=== PATIENT | male | born 1975 | race Caucasian/White ===

== ENCOUNTER → 2017-11-01 08:35 | Outpatient (CLI) | payer OTHER, SELFPAY ==
[2017-11-01 09:42] LABS: ALB/GLOB Ratio 0.9 RATIO (0.9-2.4); AST(SGOT) 21 U/L (15-37); Alanine Aminotransfer ALT/SGPT 60 U/L (16-61); Alkaline Phosphatase 86 U/L (45-117); Anion Gap 5 (5-15); BUN 15 mg/dL (7-18); BUN/Creat Ratio 14.7 RATIO (10-20); Calcium,Total 8.8 mg/dL (8.5-10.1); Chloride 106 mmol/L (98-107); Cholesterol 189 mg/dL (200); Creatinine, Serum 1.02 mg/dL (0.70-1.30); EST Glomerular Filtration Rate 85 mL/min (>60); Est Glom Filt Rate - Afr Amer 103 mL/min (>60); Globulin 4.3 g/dL (2.2-4.2); Glucose 134 mg/dL (74-106); High Density Lipoprotein 39 mg/dL; Protein, Total 8.3 g/dL (6.4-8.2); Sodium Level 141 mmol/L (136-145); Triglycerides 66 mg/dL; Very Low Density Lipoprotein 13 mg/dL (5-40)
== END ==
PROVIDERS: Family Provider Preventive Medicine Occupational Medicine; PCP Preventive Medicine Occupational Medicine; Visit Provider Preventive Medicine Occupational Medicine
DX: Z00.00 Encounter for general adult medical examination without abnormal findings (principal)
CPT/HCPCS: 36415; 80053; 80061

== ENCOUNTER → 2018-08-25 14:47 | Outpatient (CLI) | payer OTHER, SELFPAY ==
--- NOTE | 2018-08-25 | IMM_PTH ---
PATIENT: BALDEMAR RASHID LOC: [facility] U#:[id number] AGE/SX: 50/M ROOM: RE08/25/[address]: Dr. Jewell Guerrero MD : 1975 BED: DIS: SPEC #: [id number] RECD: 08/26/18 13:07 STATUS: JENARO ANNA #: [id number] VIVEK: 08/25/18 00:[address]: Jewell Guerrero DEPT: IMMUNOHISTOCHEMISTRY RECD BY: Rosemarie Vernon ENTERED: 08/26/18 13:08 SP TYPE: IMMUNO OTHR DR: Dr. Alber Clemons DO Tissues: Skin of forehead Procedures: SMA (add) CD34 (add) DESMIN (add) DENVER (add) P53 (add) Pankeratin (add) Vimentin (initial) S-100 (add) PHYSICIAN & INSTITUTION [place] [id number] SPECIMEN INFORMATION: Tissue Source: Skin lesion left forehead Clinical Info: Skin lesion left forehead Specimen Number: [id number] CPT code: 66224, 80449 x7 METHODOLOGY: Deparaffinized sections of prefer/formalin-fixed tissue or PAP/DQ stained slides are incubated with monoclonal/polyclonal antibodies/oligonucleotide probes. Localization is made via biotin free immunoperoxidase method. Appropriate controls are performed and reacted as expected. Results on target cell population are indicated in the following table: RESULTS: ANTIBODY / CLONE RESULT S-100 (4C4.9) positive, dim Vimentin (V9) positive Actin (1A4) negative Desmin (CE-R-11) negative AE1-3 (AE1/AE3/PCK26) negative CD34 (QBEnd-10) positive DENVER (E29) negative P53 (DO-7) negative These tests were developed and their performance characteristics determined by [facility]. They may not have been cleared or approved by the U.S. Food and Drug Administration. The FDA has determined that such clearance or approval is not necessary. INTERPRETATION: Skin lesion left forehead, excision: Consistent with neurofibroma. AM:nila 08/27/18
--- NOTE | 2018-08-25 14:20 | LES_PTH ---
PATIENT: BALDEMAR RASHID LOC: [facility] U#:[id number] AGE/SX: 50/M ROOM: RE08/25/[address]: Dr. Jewell Guerrero MD : 1975 BED: DIS: SPEC #: [id number] RECD: 08/25/18 14:41 STATUS: JENARO ANNA #: [id number] VIVEK: 08/25/18 14:[address]: Jewell Guerrero DEPT: SURGICAL PATHOLOGY RECD BY: Rosemarie Vernon ENTERED: 08/25/18 15:44 SP TYPE: Lesion OTHR DR: Dr. Alber Clemons, DO Tissues: Skin of forehead Procedures: Surgery Specimen Level IV HEADER OPERATION: Excision skin mass left forehead PRE-OP DIAGNOSIS: Skin lesion left forehead TISSUE SUBMITTED: Skin lesion left forehead MICROSCOPIC DIAGNOSIS Skin lesion of left forehead, biopsy: Consistent with neurofibroma. AM:nila 08/26/18 COMMENT Immunohistochemistry ([id number]) supports the above diagnosis. Case has been reviewed in consultation with Dr. Bonilla who concurs with the above diagnosis. IDC:SJ MICROSCOPIC DESCRIPTION Slides are reviewed. GROSS DESCRIPTION Received in fixative is one container labeled with the patient's name and designated skin lesion left forehead. The specimen consists of a cylindrical piece of solorzano soft tissue measuring 1 x 0.4 x 0.3 cm. The specimen is inked, bisected and submitted entirely in one cassette. / CARLOS:nila 08/25/18 TC:1 CPT: 17044
[2018-08-25 14:28] VITALS: BMI 36.6
== END ==
PROVIDERS: Family Provider Preventive Medicine Occupational Medicine; PCP Preventive Medicine Occupational Medicine; Referring Provider Surgery; Visit Provider Surgery
DX: L98.8 Other specified disorders of the skin and subcutaneous tissue (principal)
CPT/HCPCS: 88305; 88341; 88342

== ENCOUNTER 2019-11-08 11:46 | Emergency (ER) | payer BC, SELFPAY ==
[2018-08-25 14:28] VITALS: BMI 36.6
[2019-11-08 11:46] VITALS: BP 133/89; PULSE 78; RESP 18; O2SAT 97
[2019-11-08 11:47] VITALS: BP 144/89; PULSE 91; RESP 16; TEMP 36.8; O2SAT 99; BMI 35.2
--- NOTE | 2019-11-08 12:16 | ED.DCSUM_ITS ---
History of Present Illness Informant: Patient Onset: Yesterday Context: Gradual Onset Timing: Continuous Quality: Rash Location: everywhere Current Severity: Moderate Maximum Severity: Severe Worsened by: nothing Relieved by: nothing Associated Symptoms: denies Narrative: 44-year-old male presents with a rash. He first noticed it yesterday. It is constant. It is mildly pruritic and red. It is located on his arms chest and back. He has not had any location in the rash on his face. He has not had a fever. He is not lightheaded or dizzy. He does have some mild abdominal pain but he states that he has a slightly upset stomach because yesterday he finished his 10th day of Bactrim. He was placed on this by his primary care physician because he states that he had a few infected hair follicles on both legs and arms. He has not had any difficulty breathing or swallowing or any difficulty opening or closing his mouth. No vomiting or diarrhea. He has never taken Bactrim before this most recent course. Denies any other new medications, or new foods, no one else at home similar rash, denies any new soaps lotions detergents or skin care products. Prior similar symptoms: No Recent Illness/Hospitalization: No <Ortiz Dillon - Last Filed: 11/08/19 12:28> <Kym Montana - Last Filed: 11/08/19 14:59> Chief Complaint: General Illness Past Medical History Prior records reviewed: Yes Past Medical History: None Surgical History: no surgical history Lives: With Family Smoking Status: Current every day smoker Alcohol: Occasional Drugs: None <Ortiz Dillon - Last Filed: 11/08/19 12:28> <Kym Montana - Last Filed: 11/08/19 14:59> - Allergies and Home Meds Allergies/Adverse Reactions: Allergies No Known Allergies Allergy (Verified 11/08/19 11:50) Primary Care Physician: Alber Clemons DO [Primary Care Provider] - 2 Days for wound check Review of Systems All systems negative except as indicated General: Denies: Chills, Fever, Malaise, Subjective, Sweats, Weight loss Eyes: Denies: Visual changes - bilaterally, Blurred Vision - bilaterally, Diplopia ENT: Denies: Rhinorrhea, Sore throat Cardiovascular: Denies: Chest pain, Palpitations, Heart racing Respiratory: Denies: Dyspnea, Cough, Sputum Gastrointestinal: Denies: Abdominal pain, Nausea, Vomiting, Diarrhea, Constipati on, Melena Genitourinary: Denies: Dysuria, Hematuria, Frequency Musculoskeletal: Denies: Myalgias, Arthralgias, Back pain, Swelling, Extremity Pain Skin: Reports: Rash. Denies: Abscess, Abrasions, Wounds Neurological: Denies: Headache, Weakness, Parasthesia, Numbness Psych: Denies: Depression, Anxiety <Ortiz Dillon - Last Filed: 11/08/19 12:28> Physical Exam Vital Signs/Narrative: Vital Signs Temp Pulse Resp BP Pulse Ox 11/08/19 11:47 98.2 F 91 16 144/89 H 99 Inital Vital Signs reviewed: Yes General: Well nourished, Well developed, No Acute Distress Head: Normocephalic, Atraumatic Eyes: Perrl, EOMI. Negative for: Pale conjunctiva, Scleral icterus ENT: Moist mucous membranes, No rhinorrhea, - - Normal posterior oropharynx. Normal airway. Neck: Supple, Nontender Cardiovascular: Regular rate, Regular rhythm, No murmurs Respiratory: No distress, CTA bilaterally, Chest nontender Abdomen: Soft, Nontender, Nondistended, Normal bowel sounds, No masses Back: Nontender, Normal Inspection Extremities: Nontender, No edema Skin: Rash - Patient has a drug rash that is diffusely red no warmth no blisters no pustules no bullae no petechia no purpura. The rash is only located on both arms his chest and back. No lesions in his mucous membranes are within his mouth. No sloughing of skin is noted. His eyes appear normal. Neurological: Alert, Oriented x3 Psychological: Normal affect, Normal Mood <Ortiz Dillon - Last Filed: 11/08/19 12:28> Vital Signs/Narrative: Vital Signs Temp Pulse Resp BP Pulse Ox 11/08/19 14:27 16 11/08/19 11:47 98.2 F 91 16 144/89 H 99 11/08/19 11:46 78 18 133/89 H 97 <Kym Montana - Last Filed: 11/08/19 14:59> Diagnostic/Tx/Re-eval - Medical Decision Making Rash is consistent with a drug eruption that is likely from the Bactrim. He is already completed the course but was advised to place this on his allergy list. No signs or symptoms at this time of Zaragoza-Go syndrome, toxic epidermal necrolysis, or anaphylaxis. Will prescribe Pepcid and Benadryl. He will follow-up with his primary care physician. Return precautions given. He will be discharged. <Ortiz Dillon - Last Filed: 11/08/19 12:28> - Medical Decision Making I have personally performed a [id number] assessment of the patient and have reviewed the PA note. My crews findings include 44-year-old male presenting with rash. He recently completed a course of Bactrim. He has no signs of Zaragoza- Go syndrome. He also complains of right upper quadrant abdominal pain. CBC shows white count 3.3, platelet 128. AST 76, ALT 141, total bili 0.50. Lipase is normal. Gallbladder ultrasound shows fatty infiltration of the liver. He has finished Bactrim and is advised not to take this medication again. Advised of these findings and advised to follow-up with his primary care physician for recheck. Advised to return to the ED for worsening complaints. <Kym Montana - Last Filed: 11/08/19 14:59> ED Disposition <Ortiz Dillon - Last Filed: 11/08/19 12:28> <Kym Montana - Last Filed: 11/08/19 14:59> - Plan for ED Patient: Disposition: Home or Assisted Living Diagnosis: Drug eruption Instructions: DRUG REACTION, Other Prescriptions: DiphenhydrAMINE [Benadryl] 50 mg PO TID PRN PRN #30 cap PRN Reason: Rash/Topical Irritation Prescription Printed Famotidine [Pepcid] 20 mg PO BID #28 tab Prescription Printed Referrals: Alber Clemons DO [Primary Care Provider] - 2 Days for wound check
[2019-11-08] MEDS: Famotidine 20 MG Tablet 40 MG PO (12:36)
[2019-11-08] MEDS: DiphenhydrAMINE 25 MG Capsule PO (12:36)
[2019-11-08 13:11] LABS: Absolute Lymphocyte Count 0.64 X10^3/uL (0.83-4.51); Absolute Neutrophil Count 2.2 X10^3/uL (2.0-7.7); Basophil# 0.01 X10^3/uL; Basophil% 0.3 % (0-1); Eosinophil# 0.24 X10^3/uL; Eosinophils% 7.4 % (0-5); Hematocrit 43.5 % (40-54); Hemoglobin 14.5 g/dL (13.0-16.5); Lymphocyte # 0.64 X10^3/ul (4.0); Lymphocyte % 19.7 % (19-41); Mean Corp Hgb Conc 33.3 g/dL (32-36); Mean Corpuscular Hgb 29.8 pg (27.0-32.0); Mean Corpuscular Volume 89.3 fL (80-94); Mean Platelet Vol. 9.4 fl (6.2-12.0); Monocyte# 0.15 X10^3/uL; Monocyte% 4.6 % (0-10); NRBC Flagged by Analyzer 0 % (0-5); Neutrophil % 67.7 % (47-70); Platelet Count 128 K/mm3 (150-450); RBC Distribution Width CV 12.7 % (11.6-14.6); RBC Distribution Width SD 41.8 fl (35.1-43.9); Red Blood Count 4.87 M/mm3 (4.6-6.2); White Blood Count 3.3 K/mm3 (4.4-11.0)
[2019-11-08 13:26] LABS: ALB/GLOB Ratio 0.8 RATIO (0.9-2.4); AST(SGOT) 76 U/L (15-37); Alanine Aminotransfer ALT/SGPT 141 U/L (16-61); Albumin, Serum 3.5 g/dL (3.2-5.0); Alkaline Phosphatase 101 U/L (45-117); Anion Gap 3 (5-15); BUN 13 mg/dL (7-18); BUN/Creat Ratio 12.1 RATIO (10-20); Calcium,Total 8.4 mg/dL (8.5-10.1); Chloride 108 mmol/L (98-107); Creatinine, Serum 1.07 mg/dL (0.70-1.30); EST Glomerular Filtration Rate 80 mL/min (>60); Est Glom Filt Rate - Afr Amer 97 mL/min (>60); Estimated Creatinine Clearance 91.91 ml/min; Globulin 4.2 g/dL (2.2-4.2); Glucose 108 mg/dL (74-106); Lipase 46 U/L (73-393); Potassium 3.9 mmol/L (3.5-5.1); Protein, Total 7.7 g/dL (6.4-8.2); Sodium Level 138 mmol/L (136-145)
--- NOTE | 2019-11-08 13:31 | US_ITS ---
STUDY: ABDOMINAL ULTRASOUND - RIGHT UPPER QUADRANT REASON FOR VISIT: Male, 44 years old ruq pain TECHNIQUE: Ultrasound evaluation of the right upper quadrant was performed with real-time and static walker-scale imaging. TECHNICAL QUALITY: Adequate. COMPARISON: None. FINDINGS: Liver: The liver measures 18.7 cm. There is increased echogenicity consistent with fatty infiltration. The bile ducts are within normal limits. There is hepatic color flow. The direction of portal flow is hepatopetal. There is no demonstrated mass lesion. Gallbladder: Normal distended gallbladder. The gallbladder wall measures 2 mm. There is a negative sonographic Paris''s sign. There is no pericholecystic fluid. There are no gallstones. Common Bile Duct (C.B.D.): The common bile duct measures 4 mm. Pancreas: Normal size of the head, body and tail of the pancreas. There is normal echogenicity of the pancreas. There is no demonstrated pancreatic mass or cyst. Right Kidney: Normal size of the right kidney. The right kidney measures 11.1 cm. Normal renal cortex. The right cortex measures 1.2 cm. There is no demonstrated renal mass or cyst. There is no right hydronephrosis. US/Gallbladder IMPRESSION: Fatty infiltration of the liver. Electronically Signed: Luis Reece MD at 14:38 EST Tel , Service support ,
[2019-11-08] MEDS: 0.9% Normal Saline 1,000 ML 999 ML IV (14:26)
[2019-11-08 14:27] VITALS: RESP 16
[2019-11-08] MEDS: HYDROcodone Bitartrate/Apap 5/325 Tablet PO (14:42)
[2019-11-08 15:18] VITALS: BP 147/88; PULSE 87; RESP 16; O2SAT 98
== END 2019-11-08 15:19 | disposition home or self-care (01) ==
LOC: ED 12:51
PROVIDERS: Emergency Provider Physician Assistant Medical; PCP Preventive Medicine Occupational Medicine
DX: L27.0 Generalized skin eruption due to drugs and medicaments taken internally (principal); F17.200 Nicotine dependence, unspecified, uncomplicated
CPT/HCPCS: 76705; 80053; 83690; 85025; 96360; 99284; J7030; A4216

== ENCOUNTER 2020-10-17 05:13 | Emergency (ER) | payer BC, SELFPAY ==
[2020-10-17 05:14] VITALS: BP 169/101; PULSE 81; RESP 16; TEMP 36.8; O2SAT 97; BMI 37.4
--- NOTE | 2020-10-17 05:33 | EKG12_ITS ---
Test Reason : UPPER EXT Blood Pressure : / mmHG Vent. Rate : 070 BPM Atrial Rate : 070 BPM P-R Int : 194 ms QRS Dur : 092 ms QT Int : 386 ms P-R-T Axes : 010 018 012 degrees QTc Int : 416 ms Normal sinus rhythm Normal ECG Confirmed by SAMANTHA ANAND, KARINA ([id number]), editorial director VIELKA PAREDES ([id number]) on 10/19/2020 11:03:34 AM Referred By: SHANNAN Confirmed By:KARINA SINGH MD
--- NOTE | 2020-10-17 05:33 | RAD_ITS ---
c/o thoracic spine pain and pain in rt armpit x 5 daysnki EXAMINATION/TECHNIQUE: XR Chest 2 Views: COMPARISON: None FINDINGS: LINES/DEVICES: None. LUNGS: No consolidation, edema or effusion. No pneumothorax. MEDIASTINUM AND CARDIOVASCULAR STRUCTURES: Cardiac silhouette not enlarged. Central airways and mediastinal contour are unremarkable. BONES AND SOFT TISSUES: Unremarkable. RAD/Chest PA and Lateral IMPRESSION: No radiographic evidence of acute cardiopulmonary disease. at 0610 Reported and signed by: Erin Barron DO Electronically Signed: Erin Barron DO at 6:09 EST Tel , Service support ,
[2020-10-17] MEDS: Morphine 4 MG/ML Syringe IM (05:39)
[2020-10-17] MEDS: Ketorolac 15 MG/ML Vial IM (05:41)
--- NOTE | 2020-10-17 06:14 | ED.VIS.GEN ---
History of Present Illness Chief Complaint: Upper Extremity Injury Narrative: Patient stated for the last 6 days he had pain in his right scapular region and right upper rib cage under his armpit. It does hurt to move. He takes Vicodin for chronic back pain but he is never had pain in this area before. He is tried some Biofreeze with minimal relief. It seems to worse when he bends over and tries to tie his shoes. Current severity is moderate. No shortness of breath. No anterior chest pain. Has not noticed any shingles rash. - Past Medical History (1) Anxiety state Status: Chronic (2) Chronic low back pain Status: Chronic (3) Near syncope Status: Chronic (4) Sinus bradycardia Status: Chronic Past Medical History - Allergies and Home Meds Allergies/Adverse Reactions: Allergies No Known Allergies Allergy (Verified 10/17/20 05:13) Primary Care Physician: Alber Clemons DO [Primary Care Provider] - Prior records reviewed: Yes Past Medical History: - - See problem list Surgical History: no surgical history Smoking Status: Never smoker Alcohol: None Drugs: None Review of Systems General: Denies: Chills, Fever, Sweats Eyes: Denies: Visual changes - bilaterally, Diplopia ENT: Denies: Rhinorrhea, Sore throat Cardiovascular: Reports: Chest pain - See HPI. Denies: Palpitations Respiratory: Denies: Dyspnea, Cough, Dyspnea on exertion Gastrointestinal: Denies: Abdominal pain, Nausea, Vomiting, Diarrhea, Melena, Hematochezia Genitourinary: Denies: Dysuria, Hematuria, Frequency Musculoskeletal: Reports: Back pain - See HPI. Denies: Extremity Pain Skin: Denies: Rash, Wounds Neurological: Denies: Headache, Weakness, Numbness Physical Exam Vital Signs/Narrative: Vital Signs Temp Pulse Resp BP Pulse Ox 10/17/20 05:14 98.3 F 81 16 169/101 H 97 General: Well nourished, Well developed, No Acute Distress Head: Normocephalic, Atraumatic Eyes: Perrl, EOMI ENT: Moist mucous membranes, No rhinorrhea Neck: Supple, Nontender Cardiovascular: Regular rate, Regular rhythm, No murmurs, Bradycardia Respiratory: No distress, CTA bilaterally, Chest tenderness - Has chest wall tenderness in his right anterior ribs under his rib cage. There is no swelling or deformity. He has tenderness over isolated rib margin. Back exam unremarkable Abdomen: Soft, Nontender, Nondistended, Normal bowel sounds Back: Nontender, Normal Inspection Extremities: Nontender, No edema Skin: Normal color, No rash Neurological: Alert, Oriented x3, Cranial nerves II-XII grossly intact, Normal Strength, Normal Sensation Psychological: Normal affect, Normal Mood Diagnostic/Tx/Re-eval - Medical Decision Making This appears musculoskeletal me intercostal related. Given a dose of Toradol and morphine for pain. EKG obtained shows sinus rhythm at a rate of 70 with no acute ischemia or arrhythmia. My interpretation the patient's chest x-ray shows nothing acute. Cardiac silhouette appears normal. Lung margins appear normal. No pneumothorax. On reevaluation patient does feel better resting comfortably. I suspect this is not an emergent cause. It appears musculoskeletal in nature. He will continue his Vicodin icing massage and follow-up as an outpatient. I do not think he has an acute coronary syndrome PE dissection or other emergent cause of his symptoms ED Disposition - Plan for ED Patient: Disposition: Home or Assisted Living Diagnosis: Rib pain on right side Instructions: ED Pain, Acute, Uncertain Cause Referrals: Alber Clemons DO [Primary Care Provider] -
[2020-10-17 06:24] VITALS: PULSE 86; RESP 17; O2SAT 97
== END 2020-10-17 06:25 | disposition home or self-care (01) ==
PROVIDERS: Emergency Provider Emergency Medicine; PCP Preventive Medicine Occupational Medicine
DX: R07.81 Pleurodynia (principal); G89.29 Other chronic pain; M54.5 Low back pain
CPT/HCPCS: 71046; 93005; 96372; 99282